=== PATIENT | female | born 1970 | race Caucasian/White ===

== ENCOUNTER 2019-10-14 13:47 | Emergency (ER) | payer BC ==
[~2019-10-14 13:47] MED LIST: Iopamidol 370 76% 100 ML VIAL ONE
[2019-10-14 14:45] LABS: BHCG - Serum Negative (NEGATIVE); Pregs Control Background? CLEAR/WHITE (CLR/WHITE); Pregs Control Bar Appear? YES (CONTROL BAR)
[2019-10-14 14:48] LABS: #Basophils 0.1 thou/uL (0.0-0.2); #Eosinphils 0.1 thou/uL (0.0-0.7); #Lymphocytes 1.9 thou/uL (1.20-3.40); #Monocytes 0.6 thou/uL (0.11-0.59); #Neutrophils 7.6 thou/uL (1.40-6.50); %Basophils 1.1 % (0.0-1.0); %Eosinophils 1.4 % (0.0-10.0); %Lymphocytes 17.9 % (21.0-51.0); %Monocytes 6.2 % (0.0-10.0); %Neutrophils 73.4 % (42.0-75.0); Hemoglobin 14.5 g/dL (12.0-16.0); Mean Corpuscular HGB CONC 31.4 g/dL (32.0-36.0); Mean Corpuscular Hemoglobin 30.5 pg (27.0-31.0); Mean Corpuscular Volume 97.3 fL (78.0-98.0); Mean Platelet Volume 15.5 fL (7.4-10.4); Platelet Count 50 thou/uL (130-400); RBC Distribution Width 12.3 % (11.5-14.5); Red Blood Cell (RBC) Count 4.74 mill/uL (4.20-5.40); White Blood Cell (WBC) Count 10.3 thou/uL (4.8-10.8)
[2019-10-14 14:49] LABS: Giant Platelets SLIGHT; Large Platelets SLIGHT; MDiff Complete? YES; Platelet Morphology Comment Appears Decreased
[2019-10-14 14:56] LABS: ALT (SGPT) 15 U/L (8-55); AST (SGOT) 12 U/L (5-34); Albumin 3.7 g/dL (3.5-5.0); Alkaline Phosphatase 85 U/L (40-110); Anion Gap 15 mmol/L (10-20); BUN (Urea Nitrogen) 17 mg/dL (7.0-18.7); Bilirubin, Total 0.3 mg/dL (0.2-1.2); Calc. Creatinine Clearance 0 mL/min (70-130); Calcium 8.5 mg/dL (7.8-10.44); Carbon Dioxide 23 mmol/L (22-29); Chloride 108 mmol/L (98-107); Estimated GFR-MDRD 76; Globulin 2.6 g/dL (2.4-3.5); Glucose 98 mg/dL (70-105); Lipase 8 U/L (8-78); Potassium 3.6 mmol/L (3.5-5.1); Protein, Total 6.3 g/dL (6.0-8.3); Sodium 142 mmol/L (136-145)
--- NOTE | 2019-10-14 15:03 | CT ---
CT Brain WO Con History: Trauma Comparison: None. Findings: No acute hemorrhage or infarct. No midline shift or mass effect. Ventricular size and extra -axial CSF spaces are normal. Calvarium is intact. Paranasal sinuses and mastoids are clear. Impression: No acute posttraumatic intracranial sequela.
--- NOTE | 2019-10-14 15:05 | CT ---
CT Cervical Spine WO Con History: Trauma Comparison: None. Findings: Occipital condyles are intact. The odontoid process is intact given the limitation of motio n. No acute traumatic facet joint widening. C7 is not completely interrogated on this exam as it is not reach the inferior C7 endplate. Lung apices are not interrogated. Paraspinal soft tissues are unremarkable. Impression: Within the limits of this exam, no acute fracture or malalignment of the cervical spine.
--- NOTE | 2019-10-14 15:10 | CT ---
CT Abdomen Pelvis Trauma Limited CT lumbosacral spine with contrast History: Trauma Comparison: None. Findings: Lung bases appear clear. Motion artifact throughout the exam. Exam is limited as the patien t's arms are at their abdomen and not up. Left lower anterior abdominal wall subcutaneous tissue fat contusion. The spleen, liver, pancreas are unremarkable. Cholelithiasis is present. Adrenal glands are unremarkable. No renal injury. Aortoiliac contour is nonaneurysmal. Suture material along the cul-de-sac. No dilated loops of large or small bowel. No mesenteric hematoma. Necks is normal. No lumbar spine fracture. No lumbar transverse process fracture. Visualized lower ribs are intact. Impression: 1. Left anterior lower abdominal wall subcutaneous fat contusion. 2. No solid organ injury within the abdomen or pelvis. 3. Cholelithiasis.
--- NOTE | 2019-10-14 15:11 | RAD ---
XR Chest 1 View Portable History: Trauma Comparison: None. Findings: Lungs are clear. No pneumothorax. No effusion. Cardiac silhouette and mediastinal contours are within normal limits. Impression: No acute intrathoracic abnormality.
[2019-10-14] MEDS ORDERED: Ketorolac Tromethamine 30 MG/ML VIAL ONE (15:19)
== END 2019-10-14 15:20 | disposition home or self-care (01) ==
LOC: MADERS 13:47
DX: T14.8XXA Other injury of unspecified body region, initial encounter (principal); S10.91XA Abrasion of unspecified part of neck, initial encounter; I10 Essential (primary) hypertension; F17.210 Nicotine dependence, cigarettes, uncomplicated; Z79.899 Other long term (current) drug therapy; V89.2XXA Person injured in unspecified motor-vehicle accident, traffic, initial encounter
CPT/HCPCS: 36415; 70450; 71045; 72125; 74177; 80053; 83690; 84703; 85025; 96374; J1885; Q9967